=== PATIENT | female | born 1985 | race African-American/Black ===

== ENCOUNTER 2021-09-20 07:51 | Outpatient (CLI) | payer BC, OTHER, SELFPAY ==
--- NOTE | ~2021-09-20 | US_ITS ---
EXAMINATION: US pelvic complete w TV DATE: 09/20/2021 08:21 INDICATION: Intra-abdominal and pelvic swelling. Heavy periods. Comparison:No prior studies for comparison. TECHNIQUE: Multiple transabdominal and endovaginal sonographic images of the pelvis performed. FINDINGS: The uterus measures 9 x 4.5 x 6.1 cm. The endometrial complex measures 1.1 cm. The right ovary measures 3.1 x 2.8 x 3.7 cm and the left ovary measures 3.3 x 1.9 x 1.9 cm. There ar e small follicles in each ovary. Normal doppler signal in both ovaries. There is free fluid in the pelvis, likely physiologic. There are no abnormal masses seen on either s jacki. IMPRESSION: 1. Unremarkable pelvic ultrasound. Reviewed, dictated and finalized at location A.
== END 2021-09-20 07:52 ==
LOC: MICIMG 07:52
PROVIDERS: PCP Family Medicine; Visit Provider Obstetrics & Gynecology
DX: R19.00 Intra-abdominal and pelvic swelling, mass and lump, unspecified site (principal)
CPT/HCPCS: 76830; 76856

== ENCOUNTER 2021-12-12 13:53 | Outpatient (CLI) | payer BC, OTHER, SELFPAY ==
[2021-12-12 14:06] LABS: Hemoglobin 10.8 g/dL (12.0-15.0); Immature Reticulocyte Fraction 11.5 % (3.0-15.9); Mean Corpuscular HGB Conc 31.8 g/dl (32-36); Mean Corpuscular Hemoglobin 24.3 pg (26-34); Mean Corpuscular Volume 76.4 fl (80-100); Mean Platelet Volume 10.1 fl (7.4-10.4); Platelet Count Result 305 k/mm3 (150-375); Red Blood Count 4.45 M/mm3 (4.2-5.4); Reticulocyte Hemoglobin Conten 28.4 pg (28.2-35.7); Reticulocyte Percent 1.05 % (0.7-4.3); Reticulocytes Absolute 0.05 B/L (32.2-175.7); White Blood Count 7.6 K/mm3 (4.5-10.0)
[2021-12-12 15:17] LABS: Iron 40 ug/dL (37-170)
[2021-12-12 15:53] LABS: Ferritin 5.37 ng/mL (6.24-137)
== END 2021-12-12 13:54 | disposition home or self-care (01) ==
LOC: ANHLAB 13:56
PROVIDERS: PCP Family Medicine; Visit Provider Obstetrics & Gynecology
DX: D64.9 Anemia, unspecified (principal)
CPT/HCPCS: 36415; 82728; 83540; 85027; 85046

== ENCOUNTER 2022-01-01 00:44 | Day surgery (SDC) | payer BC, OTHER, SELFPAY ==
[2021-12-30 09:39] VITALS: BMI 27.4
--- NOTE | 2021-12-30 09:48 | PC.NURSE ---
Report to the Outpatient Waiting Room, entrance under the green pavilion located off [facility], at time 0930 on date 01/01/22. OR Time: 1130. Time changes happen often and if your time is changed the preop area will call you the afternoon before. - You and your visitor will be asked to self-screen and do not enter if you have any COVID symptoms. - Only one visitor and NO children visitors are allowed at this time. - The patient visitor is requested to leave or wait in car when not with patient due to restrictions. - A mask is required within the hospital. Patients may have clear liquids (water, carbonated beverages, clear teas, apple juice) until 3 hours prior to surgery with a maximum of 20 ounces. - No food from midnight until time of surgery Take the following medications with a SIP of water the morning of surgery: N/A Medications to discontinue per physician: N/A Date to take last dose: N/A Please no make-up, nail khmer, hairspray, perfume, deodorant, or body powder the day of surgery. No jewelry (including any body piercings) or valuables the day of surgery, leave them at home. Please take a shower or bath the night before, or the morning of, surgery with an antibacterial soap. Wear comfortable, loose fitting clothing. - Jewelry must be removed prior to entering the operating room. Rings and piercings that are not removed may be cut off. - The hospital will not accept responsibility for valuables. - Please leave all valuables, including medications, at home the day of surgery. If you are going home after surgery, a licensed screw driver operator must drive you home. - NO public transportation without another adult. - We recommend that an adult stay with you for 24 hours following discharge. - We also recommend that you do not drive, make important decision, drink alcoholic beverages, or take any drugs that were not prescribed by your health care provider for at least 24 hours after your discharge time. Follow any additional instructions given to you from your surgeon. If you or anyone in your household have experienced Covid symptoms in the past week, please notify your surgeon or the nurse liaison at the phone number below for possible testing. Telephone instructions given to PT - ARLIN ARIZMENDI and asked if any additional questions and then verbalized understanding. Patient advised to call surgeon office or pre surgery nurse liaison [phone] if any additional questions.
--- NOTE | 2021-12-31 16:37 | PM.IMHP ---
H&P: HPI History of Present Illness Date/Time: 12/31/21 16:37 Chief Complaint: heavy periods Narrative: Patient with a history of heavy periods. She has had an endometrial biopsy which was normal.. She had a normal pelvic ultrasound. had had vasectomy. She has tried Lysteda and did not help her symptoms. She does not want to take control pills. She has been offered progesterone only to help until her procedure. She has iron deficiency anemia and is scheduled for iron infusions. Review of Systems Review of Systems: All systems reviewed & are unremarkable except as noted in HPI and below Constitutional: Constitutional: Reports no additional constitutional complaints Eyes: Eyes: Reports no additional eye complaints Cardiovascular: Cardiovascular: Reports no additional cardiovascular complaints Respiratory: Respiratory: Reports no additional respiratory complaints Gastrointestinal: Gastrointestinal: Reports no additional gastrointestinal complaints Genitourinary: Genitourinary: Reports no additional female genitourinary complaints and Reports as per HPI Integumentary/Breasts: Skin/Breast: Reports system reviewed and no additional complaints, except as docu Neurologic: Reports system reviewed and no additional complaints, except as documented Psychiatric: Psychiatric: Reports no additional psychiatric complaints Hematologic/Lymphatic: Hematologic/Lymphatic: Reports no additional hematologic/lymphatic complaints [facility] Past Medical History Medical History Anemia Constipation Sickle cell trait Surgical History Surgical History H/O detached retina repair [place] teeth removed Family History Family History Grandparent Cerebrovascular accident Mother Hypertension Social History Social History Smoking status: Never smoker Alcohol intake: current Alcohol use details: VERY RARE Substance use: never Substance use type: does not use Living arrangements: with family Spiritual care concerns: No Meds Home Medications and Allergies Home Medications Medication Instructions Recorded Confirmed Type No Home Medications 12/30/21 12/30/21 History Allergies Allergy/AdvReac Type Severity Reaction Status Date / Time No Known Allergies Allergy Verified 12/30/21 09:37 Exam Const: General: comfortable and no acute distress Orientation/consciousness: oriented to person, oriented to place and oriented to time Eyes: General: appearance normal, both eyes and all related structures Neck: Neck: normal visual inspection Resp: Effort & Inspection: normal respiratory effort Auscultation: clear to auscultation bilaterally Cardio: Rate: regular rate Rhythm: regular rhythm GI: Inspection: normal to inspection GI Palp: No abdominal tenderness and Yes No hepatosplenomegaly present : External Female Exam: normal external appearance Speculum Exam - Vagina: normal appearance of the vagina Speculum Exam - Cervix: normal appearance of the cervix Bimanual exam- vagina & uterus: normal bimanual exam, uterine mobility normal, uterine shape normal and non-tender Bimanual Exam- Adnexa, other: no masses and No adnexal tenderness Skin: General skin exam: normal color Neuro: General: oriented to person, oriented to place and oriented to time Psych: Appearance: grossly normal Assessment and Plan Assessment and plan (1) Menorrhagia: Code(s): N92.0 - Excessive and frequent menstruation with regular cycle Status: Acute Assessment and Plan: Bharti endometrial ablation planned. Hysteroscopy, possible myosure if needed.
--- NOTE | 2022-01-01 07:47 | P.PNAN_ITS ---
Anes - Initial Pre Proc Eval Procedure: Operation Date: 01/01/22 11:00 Proposed Procedures p Hysteroscopy, Dilation and Curettage, Bharti Endometrial Ablation, Possible Myosure - Geoff De León MD Date/Time: 01/01/22 07:47 Surgeon: Geoff De León MD Pre Op Diagnosis: menorrhagia Patient Data Age: 36 Gender: F Height: 1.65 m Weight: 74.84 kg Allergies Allergy/AdvReac Type Severity Reaction Status Date / Time No Known Allergies Allergy Verified 12/30/21 09:37 Home Medications Medication Instructions Recorded Confirmed Type No Home Medications 12/30/21 12/30/21 History Patient hx anesthesia problems: none Family hx anesthesia problems: none Results Review: All pre-operative results and documents have been reviewed as part of the pre- operative evaluation. [facility] Past Medical History Medical History (Updated 01/01/22 @ 07:47 by Yon Cat DO) Anemia Constipation Sickle cell trait Surgical History Surgical History H/O detached retina repair [place] teeth removed Family History Family History Grandparent Cerebrovascular accident Mother Hypertension Social History Social History Smoking status: Never smoker Alcohol intake: current Alcohol use details: VERY RARE Substance use: never Substance use type: does not use Living arrangements: with family Spiritual care concerns: No Anes - Eval Final PreProcedure Day of Procedure 01/01/22 07:47 Patient weight: overweight Heart: regular rate and rhythm Lungs: clear to auscultation Airway: Mallampati scale class II Neurological: alert and oriented Last oral intake: >/= 8 hours ASA classification: II Emergent: no Anesthetic plan: proceed Anesthesia type and monitoring: general GIVS and standard monitoring Results Review: All pre-operative results and documents have been reviewed as part of the pre- operative evaluation. Informed Consent: The patient's anesthetic plan and its attendant risks and benefits were discussed with the patient/family/POA. Questions were solicited and answers provided to the satisfaction of the patient/family/POA.
[2022-01-01 10:00] VITALS: BP 112/64; PULSE 73; RESP 18; TEMP 36.9; O2SAT 100
[2022-01-01] MEDS: LACTATED RINGERS 1,000 ML 30 ML IV CONT (10:00)
[2022-01-01] MEDS: ACETAMINOPHEN 500 MG TABLET 1000 MG PO (10:07)
--- NOTE | 2022-01-01 10:34 | WPDHPUPDATE1 ---
History and Physical Update Update Date/Time: 01/01/22 10:34 History and Physical has been reviewed, including an updated exam of the patient. There are NO changes in the patient's condition. Risks, benefits, and alternatives have been discussed and questions answered. Patient agrees to proceed with procedure.
[2022-01-01] MEDS: ceFAZolin 2 GM/D5W 50 ML 2 GM/50 ML BAG IVPB (11:11)
[2022-01-01] MEDS: KETOROLAC 30 MG/ML VIAL (*BKC) IV PUSH (11:24)
[2022-01-01] MEDS: LIDOCAINE HCL 1% PF 30 ML VIAL 10 ML INFILTRATE (11:34)
[2022-01-01 11:45] VITALS: BP 130/76; PULSE 95; RESP 20; O2SAT 100
--- NOTE | 2022-01-01 11:50 | W.PM.PROC2 ---
Procedure Note - Detailed Date of Procedure 01/01/22 Pre-op Diagnosis menorrhagia Post-op Diagnosis Same Procedure Performed Hysteroscopy with bharti endometrial ablation. Surgeon Geoff De León MD Anesthesia MAC and Local Indications Menorrhagia, anemia Findings normal endometrial cavity Description of Procedure After informed consent was obtained patient was taken to the operating room and adequate IV sedation was administered. Attention was turned to the vagina. Speculum was inserted. Single-tooth tenaculum placed on the anterior lip of the cervix. The uterus was sounded to 9cm. The cervix was dilated to an 8 Mohan dilator. The cervical length was 4.5. The hysteroscope was inserted into the cavity. The findings were a normal uterine cavity. The hysteroscope was removed. The Bharti ablation instrument was inserted into the cavity. Cavity assessment was performed and confirmed intact. The ablation was enabled. After 120 seconds the Bharti stopped. The ablation instrument was removed. The hysteroscope was inserted and there was noted to be good eschar with the cavity. The hysteroscope was removed the single-tooth tenaculum was removed hemostasis was noted at the tenaculum site. Sponge count correct. The patient taken to recovery in stable condition. Estimated Blood Loss 5 Drains No Packing No Pathology None sent Complications No immediate complications Condition Stable Disposition Same day [facility] Billing Surgery - Charge Forward: Surgery Billing
[2022-01-01] MEDS: fentaNYL CITRATE INJ (*CRX) 100 MCG/2 ML VIAL 25 MCG IV PUSH ×5 (11:52→12:34)
[2022-01-01 12:15] VITALS: BP 110/65; PULSE 71; RESP 18; O2SAT 98
[2022-01-01] MEDS: oxyCODONE HCL (*CRX) 5 MG TAB IR PO (12:33)
[2022-01-01 12:45] VITALS: BP 131/83; PULSE 67; RESP 16; O2SAT 100
[2022-01-01 13:15] VITALS: BP 121/66; PULSE 80; RESP 16; O2SAT 100
== END 2022-01-01 13:32 | disposition home or self-care (01) ==
PROVIDERS: PCP Family Medicine; Visit Provider Obstetrics & Gynecology
PROC: 0U5B8ZZ Destruction of Endometrium, Via Natural or Artificial Opening Endoscopic (ICD-10-PCS; CPT 58563; principal; 2022-01-01 11:00)
DX: N92.0 Excessive and frequent menstruation with regular cycle (principal); D50.9 Iron deficiency anemia, unspecified; D57.3 Sickle-cell trait
CPT/HCPCS: 58563; A9270; J0690; J1885; J2250; J2704; J3010; J7030; J7120

== ENCOUNTER 2022-01-15 15:45 | Outpatient (CLI) | payer BC, OTHER, SELFPAY ==
[2022-01-15 16:32] LABS: Hematocrit 33.3 % (37.0-47.0); Hemoglobin 10.7 g/dL (12.0-15.0); Mean Corpuscular HGB Conc 32.1 g/dl (32-36); Mean Corpuscular Hemoglobin 25.2 pg (26-34); Mean Corpuscular Volume 78.5 fl (80-100); Mean Platelet Volume 10.8 fl (7.4-10.4); Platelet Count Result 299 k/mm3 (150-375); Red Blood Count 4.24 M/mm3 (4.2-5.4); Red Cell Distribution Width 16.5 % (11.5-14.5); White Blood Count 6.8 K/mm3 (4.5-10.0)
[2022-01-15 16:38] LABS: Alanine Aminotransferase 12 U/L (6-35); Albumin Level 4.3 g/dL (3.5-5.1); Alkaline Phosphatase 47 U/L (38-126); Anion Gap 8 mmol/L (8-16); Aspartate Amino Transferase 16 U/L (14-36); Bilirubin,Total 0.3 mg/dL (0.2-1.3); Blood Urea Nitrogen 10 mg/dL (7-17); Calcium 8.5 mg/dL (8.4-10.2); Carbon Dioxide 28 mmol/L (22-30); Chloride 102 mmol/L (98-107); Estimated Glomerular Filt Rate > 60; Glucose 80 mg/dL (65-110); Potassium 3.7 mmol/L (3.4-5.0); Sodium 138 mmol/L (137-145)
[2022-01-15 17:03] LABS: T4 Thyroxine 7.38 ug/dL (5.53-11.0)
== END 2022-01-15 15:46 | disposition home or self-care (01) ==
LOC: ANHLAB 15:47
PROVIDERS: PCP Family Medicine; Visit Provider Obstetrics & Gynecology
DX: R53.83 Other fatigue (principal)
CPT/HCPCS: 36415; 80053; 82306; 82607; 84436; 84443; 85027

== ENCOUNTER 2022-04-26 09:36 | Outpatient (CLI) | payer BC, OTHER, SELFPAY ==
[2022-04-26 10:03] LABS: Hematocrit 36.3 % (37.0-47.0); Hemoglobin 12.2 g/dL (12.0-15.0); Immature Reticulocyte Fraction 7.5 % (3.0-15.9); Mean Corpuscular HGB Conc 33.6 g/dl (32-36); Mean Corpuscular Hemoglobin 27.7 pg (26-34); Mean Corpuscular Volume 82.5 fl (80-100); Mean Platelet Volume 10.3 fl (7.4-10.4); Platelet Count Result 233 k/mm3 (150-375); Red Cell Distribution Width 13.4 % (11.5-14.5); Reticulocyte Hemoglobin Conten 31.1 pg (28.2-35.7); Reticulocyte Percent 1.57 % (0.7-4.3); Reticulocytes Absolute 0.07 B/L (32.2-175.7); White Blood Count 5.3 K/mm3 (4.5-10.0)
[2022-04-26 10:35] LABS: Iron 153 ug/dL (37-170)
[2022-04-26 10:45] LABS: Percent Iron Saturation 47 % (20-50)
== END 2022-04-26 09:37 | disposition home or self-care (01) ==
PROVIDERS: PCP Family Medicine; Visit Provider Obstetrics & Gynecology
DX: D50.8 Other iron deficiency anemias (principal)
CPT/HCPCS: 36415; 82728; 83540; 83550; 85027; 85046